=== PATIENT | male | born 1955 | race Caucasian/White ===

== ENCOUNTER → 2024-02-24 18:53 | Outpatient (REF) | payer MEDICARE, OTHER, SELFPAY | LOC: CLAB 18:53 | PROVIDERS: ATTENDING PHYSICIAN Otolaryngology | DX: H73.001 Acute myringitis, right ear (principal); H60.392 Other infective otitis externa, left ear | CPT/HCPCS: 87070 ==

== ENCOUNTER → 2024-12-20 14:00 | Outpatient (REF) | payer MEDICARE, OTHER, SELFPAY | LOC: CLAB 14:00 | PROVIDERS: ATTENDING PHYSICIAN Otolaryngology | DX: H65.21 Chronic serous otitis media, right ear (principal) | CPT/HCPCS: 87070; 87147 ==

== ENCOUNTER → 2025-02-16 10:26 | Outpatient (REF) | payer MEDICARE, OTHER, SELFPAY | LOC: HWRAD 10:26 | PROVIDERS: ATTENDING PHYSICIAN Otolaryngology; FAMILY PHYSICIAN Student in an Organized Health Care Education/Training Program | DX: H65.21 Chronic serous otitis media, right ear (principal) | CPT/HCPCS: 70480 ==